=== PATIENT | male | born 1930 | race Caucasian/White ===

== ENCOUNTER 2017-06-22 02:43 | Emergency (ER) | payer OTHER ==
[~2017-06-22] VITALS: Ht 172.7 cm; Wt 73.6 kg
[2017-06-22 02:50] VITALS: BP 131/85; PULSE 79; RESP 18; TEMP 98.1; O2SAT 97
[2017-06-22] MEDS ORDERED: SODIUM CHLORIDE 0.9% FLUSH 10 ML FLUSH IVF PRN (03:00)
--- NOTE | 2017-06-22 03:22 | RADRPT ---
EXAM DATE/TIME: 06/22/2017 03:05 [place] COMPARISON: No previous studies available for comparison. INDICATIONS : Palpitations. MEDICAL HISTORY : None. SURGICAL HISTORY : Pacemaker. ENCOUNTER: Initial ACUITY: 1 day PAIN SCORE: 2/10 LOCATION: Bilateral chest FINDINGS: No infiltrate, effusion or pneumothorax demonstrated. Normal heart size. Left subclavian transvenous cardiac pacer with 2 leads noted. CONCLUSION: No evidence of acute cardiopulmonary disease. Brain Hoyt MD on June 22, 2017 at 3:20 Board Certified Radiologist. This report was verified electronically.
[2017-06-22] MEDS ORDERED: LATA0.002 EACH EYE (03:24)
[2017-06-22] MEDS ORDERED: DORZ2SOL EACH EYE (03:24)
[2017-06-22] MEDS ORDERED: LIPI40TA PO (03:24)
[2017-06-22] MEDS ORDERED: BRIM0.2S4 EACH EYE (03:24)
[2017-06-22] MEDS ORDERED: PLAV75TA29 PO (03:24)
[2017-06-22] MEDS ORDERED: VITA100036 PO (03:24)
[2017-06-22] MEDS ORDERED: OSTETAB3 PO (03:24)
[2017-06-22] MEDS ORDERED: OCUVTAB4 PO (03:25)
[2017-06-22] MEDS ORDERED: ENAL10TA PO (03:25)
[2017-06-22] MEDS ORDERED: VITATAB43 PO (03:25)
[2017-06-22] MEDS ORDERED: PANT40TA3 PO (03:25)
[2017-06-22] MEDS ORDERED: FLUT50SP EACH NARE (03:25)
[2017-06-22] MEDS ORDERED: TAMS0.4C4 PO (03:25)
[2017-06-22] MEDS ORDERED: VITATAB11 PO (03:25)
[2017-06-22 03:41] VITALS: BP 100/74; PULSE 73; RESP 16; O2SAT 97
[2017-06-22 03:51] LABS: CHLORIDE 109 MEQ/L (98-107); SODIUM (NA) 138 MEQ/L (136-145)
[2017-06-22 03:54] LABS: ANION GAP 9 MEQ/L (5-15); APTT (PATIENT) 29.7 SEC (24.3-30.1); BICARBONATE 20.3 MEQ/L (21.0-32.0); BLOOD UREA NITROGEN 27 MG/DL (7-18); MAGNESIUM 2.1 MG/DL (1.5-2.5); PROTHROMBIN TIME - PATIENT 11.1 SEC (9.8-11.6)
[2017-06-22 03:57] LABS: ALT (GPT) 26 U/L (12-78); AST (GOT) 40 U/L (15-37); GLOMERULAR FILTRATION RATE 48 ML/MIN (>89)
[2017-06-22 03:59] LABS: TOTAL BILIRUBIN ADULT 1.1 MG/DL (0.2-1.0)
[2017-06-22 04:00] LABS: ALKALINE PHOSPHATASE 106 U/L (45-117); CREATINE KINASE 193 U/L (39-308)
--- NOTE | 2017-06-22 04:09 | PD ---
HPI Chief Complaint: Cardiac Complaint Time Seen by Provider: 02:58 Travel History International Travel<30 days: No Contact w/Intl Traveler<30days: No Traveled to known affect area: No History of Present Illness HPI 86-year-old male presents to the emergency department by private transportation the care of his spouse for evaluation of dizziness 2 hours associated with episode of diaphoresis. Patient had placement of a pacemaker at [facility] by his online producer Dr. Way 06/19/17. Patient has done well and has not noticed increased bleeding from the insertion site. Patient's had no chest pain no shortness of breath no pleuritic pain no nausea no vomiting no near-syncope or syncope. Patient reports that he had the pacemaker placed due to bradycardia. Patient states he did not have a defibrillator placed. Patient states when he was at home he checked his heart rate and it was 130. Patient states that has resolved. Patient did not fill palpitations skipped beat or rapid heartbeat. Patient contacted the phone number that was provided but there was no answer. Patient's had no fever or chills. Patient does take Plavix. PFSH Past Medical History Narrative Medical Hypertension Diverticulitis glaucoma Arthritis dyslipidemia bradycardia CAD AR stent placement and pacemaker left hydrocele repair no tobacco use; nursing notes reviewed Arthritis: Yes Heart Rhythm Problems: Yes (BRADYCARDIA) Cardiac Catheterization: Yes High Cholesterol: Yes Coronary Artery Disease: Yes Diverticulitis: Yes Gastrointestinal Disorders: Yes ("YELLOW JAUNDICE" AGE 11) GERD: Yes Glaucoma: Yes Hypertension: Yes Myocardial Infarction: Yes Pneumonia: Yes Tetanus Vaccination: < 5 Years Influenza Vaccination: Yes Past Surgical History Coronary Stent: Yes (X4) Eye Surgery: Yes (BILATERAL CATARACT) Pacemaker: Yes (PLACED: 06/19/17 [facility]: MODEL# [id number], SERIAL#[id number]) Other Surgery: Yes (LEFT HYDROCELE REPAIR: 1949) Social History Alcohol Use: Yes ("RARELY") Tobacco Use: No Substance Use: No Allergies-Medications (Allergen,Severity, Reaction): Coded Allergies: meperidine (Verified Allergy, Unknown, Nausea/Vomiting, 06/22/17) Uncoded Allergies: morphine sulfate (Adverse Reaction, Unknown, Nausea/Vomiting, 06/22/17) Reported Meds & Prescriptions Reported Meds & Active Scripts Active Reported Vitamin G58-[id number] Acid (Cobalamine Combinations) 500-400 Mcg Tab 1 Tab PO DAILY Tamsulosin (Tamsulosin HCl) 0.4 Mg Cap 0.4 Mg PO HS Pantoprazole (Pantoprazole Sodium) 40 Mg Tab 40 Mg PO DAILY Preservision Areds (Multiple Vitamins W/ Minerals) 1 Tab 1 Tab PO BID Vitamin B Complex (B-Complex Vitamins) 1 Tab 1 Tab PO DAILY Fluticasone Nasal [place] 50 Mcg/Act Naspr 50 Mcg EACH NARE DAILY 50 mcg/spray Enalapril (Enalapril Maleate) 10 Mg Tab 10 Mg PO DAILY Plavix (Clopidogrel Bisulfate) 75 Mg Tab 75 Mg PO DAILY Osteo Bi-Flex Regular Strength (Glucosamine-Chondroitin) 250-200 Tab 1 Tab PO BID Vitamin D3 (Cholecalciferol) 1,000 Unit Cap 1,000 Units PO DAILY Latanoprost Opth Drops (Latanoprost) 0.005% Drops 1 Drop EACH EYE HS Refrigerate until opened. Dorzolamide Opth Drops (Dorzolamide HCl) 2% Soln 1 Drop EACH EYE BID Brimonidine Opth Drops (Brimonidine Tartrate) 0.2% Soln 1 Drop EACH EYE BID Lipitor (Atorvastatin Calcium) 40 Mg Tab 40 Mg PO HS Review of Systems Except as stated in HPI: all other systems reviewed are Neg General / Constitutional: No: Fever, Chills HENT: No: Congestion Cardiovascular: Positive: Diaphoresis, No: Chest Pain or Discomfort, Palpitations, Syncope, Dyspnea on exertion Respiratory: No: Cough, Shortness of Breath, Wheezing, Sneezing Gastrointestinal: No: Nausea, Vomiting, Abdominal Pain Genitourinary: No: Dysuria, Flank Pain Musculoskeletal: No: Myalgias, Arthralgias Skin: No Rash Neurologic: Positive: Weakness, Dizziness, No: Syncope, Focal Abnormalities, Coordination Problem Psychiatric: Positive: Anxiety Endocrine: No: Heat Intolerance, Cold Intolerance Hematologic/Lymphatic: No: Easy Bruising Physical Exam Narrative GENERAL: Well-developed well-nourished male in no acute distress no respiratory distress SKIN: Warm and dry. HEAD: Normocephalic. EYES: No scleral icterus. No injection or drainage. NECK: Supple, trachea midline. No JVD or lymphadenopathy. CARDIOVASCULAR: Regular rate and rhythm without murmurs, gallops, or rubs. Chest wall: Anterior left chest wall ecchymosis dressing in place with tracing of small amount of serosanguineous drainage with drainage confined to pin trace border and patient reports this is unchanged since 06/19/17; RESPIRATORY: Breath sounds equal bilaterally. No accessory muscle use. GASTROINTESTINAL: Abdomen soft, non-tender, nondistended. MUSCULOSKELETAL: No cyanosis, or edema. Bilateral radial arterial pulses 2+ to palpation bilateral dorsalis pedis pulses 2+ to palpation BACK: Nontender without obvious deformity. No CVA tenderness. Data Data Last Documented VS Vital Signs Date Time Temp Pulse Resp B/P (MAP) Pulse Ox O2 Delivery O2 Flow Rate FiO2 06/22/17 06:51 82 18 100/71 (81) 98 Room Air 06/22/17 03:41 2.00 06/22/17 02:50 98.1 Orders Orders Electrocardiogram (06/22/17 02:58) Complete Blood Count With Diff (06/22/17 02:58) Comprehensive Metabolic Panel (06/22/17 02:58) Magnesium (Mg) (06/22/17 02:58) Ckmb (Isoenzyme) Profile (06/22/17 02:58) Troponin I (06/22/17 02:58) Act Partial Throm Time (Ptt) (06/22/17 02:58) Prothrombin Time / Inr (Pt) (06/22/17 02:58) Chest, Single Ap (06/22/17 02:58) Blood Glucose (06/22/17 02:58) Ecg Monitoring (06/22/17 02:58) Iv Access Insert/Monitor (06/22/17 02:58) Oximetry (06/22/17 02:58) Sodium Chloride 0.9% Flush (Ns Flush) (06/22/17 03:00) CKMB (06/22/17 02:50) CKMB% (06/22/17 02:50) Sodium Chlorid 0.9% 500 Ml Inj (Ns 500 M (06/22/17 05:15) Sodium Chlorid 0.9% 500 Ml Inj (Ns 500 M (06/22/17 07:00) Diltiazem Cd (Cardizem Cd) (06/22/17 07:00) Diltiazem (Cardizem) (06/22/17 07:15) Labs Laboratory Tests Test 06/22/17 02:50 White Blood Count 9.2 TH/MM3 Red Blood Count 4.47 MIL/MM3 Hemoglobin 14.2 GM/DL Hematocrit 42.4 % Mean Corpuscular Volume 94.9 FL Mean Corpuscular Hemoglobin 31.8 PG Mean Corpuscular Hemoglobin Concent 33.5 % Red Cell Distribution Width 12.9 % Platelet Count 174 TH/MM3 Mean Platelet Volume 7.9 FL Neutrophils (%) (Auto) 54.8 % Lymphocytes (%) (Auto) 29.3 % Monocytes (%) (Auto) 11.2 % Eosinophils (%) (Auto) 3.4 % Basophils (%) (Auto) 1.3 % Neutrophils # (Auto) 5.1 TH/MM3 Lymphocytes # (Auto) 2.7 TH/MM3 Monocytes # (Auto) 1.0 TH/MM3 Eosinophils # (Auto) 0.3 TH/MM3 Basophils # (Auto) 0.1 TH/MM3 CBC Comment DIFF FINAL Differential Comment Prothrombin Time 11.1 SEC Prothromb Time International Ratio 1.0 RATIO Activated Partial Thromboplast Time 29.7 SEC Blood Urea Nitrogen 27 MG/DL Creatinine 1.40 MG/DL Random Glucose 107 MG/DL Total Protein 7.8 GM/DL Albumin 3.5 GM/DL Calcium Level 8.5 MG/DL Magnesium Level 2.1 MG/DL Alkaline Phosphatase 106 U/L Aspartate Amino Transf (AST/SGOT) 40 U/L Alanine Aminotransferase (ALT/SGPT) 26 U/L Total Bilirubin 1.1 MG/DL Sodium Level 138 MEQ/L Potassium Level 4.8 MEQ/L Chloride Level 109 MEQ/L Carbon Dioxide Level 20.3 MEQ/L Anion Gap 9 MEQ/L Estimat Glomerular Filtration Rate 48 ML/MIN Total Creatine Kinase 193 U/L Creatine Kinase MB 1.7 NG/ML Troponin I 0.02 NG/ML MDM Medical Decision Making Medical Screen Exam Complete: Yes Emergency Medical Condition: Yes Medical Record Reviewed: Yes Interpretation(s) cxr: FINDINGS: No infiltrate, effusion or pneumothorax demonstrated. Normal heart size. Left subclavian transvenous cardiac pacer with 2 leads noted. CONCLUSION: No evidence of acute cardiopulmonary disease. Brain Hoyt MD on June 22, 2017 at 3:20 Board Certified Radiologist. This report was verified electronically. EKG: Normal sinus rhythm rate [address] elevation or injury pattern change or ectopy noted age-indeterminate inferior infarct with QS to 3 aVF and anteroseptal infarct with QS in V1 to V3 Vital Signs Date Time Temp Pulse Resp B/P (MAP) Pulse Ox O2 Delivery O2 Flow Rate FiO2 06/22/17 06:51 82 18 100/71 (81) 98 Room Air 06/22/17 06:51 82 06/22/17 05:13 65 16 106/56 (73) 98 Room Air 06/22/17 03:41 73 16 100/74 (83) 97 Nasal Cannula 2.00 06/22/17 02:50 98.1 79 18 131/85 (100) 97 06/22/17 02:50 72 Nasal Cannula 2.00 CBC & BMP Diagram 06/22/17 02:50 Total Protein 7.8, Albumin 3.5, Calcium Level 8.5, Magnesium Level 2.1, Alkaline Phosphatase 106, Aspartate Amino Transf (AST/SGOT) 40 H, Alanine Aminotransferase (ALT/SGPT) 26, Total Bilirubin 1.1 H Vital Signs Date Time Temp Pulse Resp B/P (MAP) Pulse Ox O2 Delivery O2 Flow Rate FiO2 06/22/17 06:51 82 18 100/71 (81) 98 Room Air 06/22/17 06:51 82 06/22/17 05:13 65 16 106/56 (73) 98 Room Air 06/22/17 03:41 73 16 100/74 (83) 97 Nasal Cannula 2.00 06/22/17 02:50 98.1 79 18 131/85 (100) 97 06/22/17 02:50 72 Nasal Cannula 2.00 troponin I: 0.02, not elevated CK: 195, not elevated Last Impressions Chest X-Ray 06/22/17 0258 Signed Impressions: Service Date/Time: Thursday, June 22, 2017 03:05 - CONCLUSION: No evidence of acute cardiopulmonary disease. Brain Hoyt MD Differential Diagnosis Dizziness, arrhythmia, ACS, AR, PE, anemia Narrative Course Patient placed on strategy lead EKG performed which shows sinus rhythm rate [address] elevation or injury pattern change or ectopy noted evidence of previous age-indeterminate inferior infarct and anteroseptal infarct identified ; IV access obtained specimens collected and sent for resulting chest x-ray performed which reveals no lobar infiltrate pneumothorax effusion or vascular congestion and pacemaker in place with 2 pacer leads Patient feels well voicing no concerns or complaints lab values in normal range Carmelo from [employer] admissions representative is here to interrogate the pacemaker identified to have 2 episodes of atrial fibrillation each with a rate of approximately 177 at the peak one hour for the first episode of vomiting through the second episode had pacemaker placed for complete heart block. Pacemaker working properly. Physician Communication Physician Communication call placed to Dr Way --discussed with Dr Desai -- may d/c home if PM interrogation normal function; pacemaker has been interrogated this was discussed with Dr. Swain he recommends patient be started on Cardizem 120 mg long-acting daily as well as discontinue Plavix if patient has not had a stent placed in the last 1 year and start the patient on Eliquis however if patient has had a pacemaker placed and less than one year TV mother Plavix and have him see his online producer Dr Way early this week instead of waiting until Friday Diagnosis Primary Impression: Palpitations Additional Impressions: Atrial fibrillation Qualified Codes: I48.0 - Paroxysmal atrial fibrillation Pacemaker Renal insufficiency Referrals: Pato Way MD 2 days Patient Instructions: General Instructions Additional Instructions: Take medications as prescribed and continue Plavix Follow-up with your online producer on Friday Return to the emergency department for any concerns or change in condition Increase fluid hydration Med/Other Pt SpecificInfo: Prescription(s) given Scripts Diltiazem CD 24 HR (Cardizem CD 24 HR) 120 Mg Caper 120 MG PO DAILY, #30 CAP 0 Refills Prov: Hilary Molina MD 06/22/17 Disposition: 01 DISCHARGE HOME Condition: Stable Hilary Molina MD Jun 22, 2017 04:09
[2017-06-22 04:29] LABS: AUTOMATED NEUTROPHIL # 5.1 TH/MM3 (1.8-7.7); BASOPHIL # 0.1 TH/MM3 (0-0.2); BASOPHIL % 1.3 % (0.0-2.0); EOSINOPHIL # 0.3 TH/MM3 (0-0.4); EOSINOPHIL % 3.4 % (0.0-4.0); HEMATOCRIT 42.4 % (39.0-51.0); HEMO FLAGS DIFF FINAL; LYMPH % 29.3 % (9.0-44.0); LYMPHOCYTE # 2.7 TH/MM3 (1.0-4.8); MEAN CELL VOLUME 94.9 FL (80.0-100.0); MEAN CORPUSCULAR HEMOGLOBIN 31.8 PG (27.0-34.0); MEAN CORPUSCULAR HGB CONC 33.5 % (32.0-36.0); MONO % 11.2 % (0.0-8.0); NEUT % 54.8 % (16.0-70.0); PLATELET COUNT 174 TH/MM3 (150-450); RED BLOOD COUNT 4.47 MIL/MM3 (4.50-5.90); RED CELL DISTRIBUTION WIDTH 12.9 % (11.6-17.2); WHITE BLOOD COUNT 9.2 TH/MM3 (4.0-11.0)
[2017-06-22 04:31] LABS: POTASSIUM 4.8 MEQ/L (3.5-5.1)
[2017-06-22 04:44] LABS: CKMB 1.7 NG/ML (0.5-3.6)
[2017-06-22 05:13] VITALS: BP 106/56; PULSE 65; RESP 16; O2SAT 98
[2017-06-22] MEDS ORDERED: SODIUM CHLORID 0.9% 500 ML INJ 500 ML IV ONE ×2 (05:15→07:00)
[2017-06-22 06:51] VITALS: BP 100/71; PULSE 82; RESP 18; O2SAT 98
[2017-06-22] MEDS ORDERED: DILTIAZEM-CD 120 MG CAP ER PO ONE (07:00)
[2017-06-22] MEDS ORDERED: DILTIAZEM HCL 60 MG TAB PO ONE (07:15)
[2017-06-22] MEDS ORDERED: CARD120C4 PO (07:16)
--- NOTE | 2017-06-22 17:53 | EKG ---
Date Performed: 06/22/2017 Time Performed: 02:48:29 PTAGE: 86 years EKG: Sinus rhythm ANTERIOR MYOCARDIAL INFARCTION INFERIOR MYOCARDIAL INFARCTION ABNORMAL ECG INTERPRETATION BASED ON A DEFAULT AGE OF 40 YEARS NO PREVIOUS TRACING DOCTOR: Marcelo Desai Interpretating Date/Time 06/22/2017 17:53:17
== END 2017-06-22 08:09 | disposition home or self-care (01) ==
LOC: PHED 02:43
DX: R00.2 Palpitations (principal); I48.0 Paroxysmal atrial fibrillation; N28.9 Disorder of kidney and ureter, unspecified; I10 Essential (primary) hypertension; I25.10 Atherosclerotic heart disease of native coronary artery without angina pectoris; E78.5 Hyperlipidemia, unspecified; Z95.0 Presence of cardiac pacemaker
CPT/HCPCS: 71010; 80053; 82550; 82552; 83735; 84484; 85025; 85610; 85730; 93005; 96360; 96361; 99285; J7040